=== PATIENT | male | born 1990 | race Caucasian/White ===

== ENCOUNTER 2025-01-10 12:36 | Observation (INO) ==
--- NOTE | 2025-01-10 13:25 | XRay Report ---
XR chest 1V not portable HISTORY: 34 years-old Male Chest pain, nonspecific COMPARISON: None TECHNIQUE: PA view of the chest FINDINGS: Cardiomediastinal and hilar silhouettes are within normal limits. No pneumothorax, pleural effusion o r airspace consolidation. The bones appear grossly intact. IMPRESSION: No acute process. ACT 112: Negative or not required by law. The above report was generated using voice recognition software. It may contain grammatical, syntax o r spelling errors. Electronically signed by: Vito Mott M.D. 01/10/2025 1:23 PM
[2025-01-10 13:28] LABS: Hematocrit (blood only) 49.1 % (42.0-52.0); Hemoglobin 17.2 g/dl (14.0-18.0); Mean Corpuscular Hemoglobin 31.1 pg (25.0-34.0); Mean Corpuscular Volume 88.8 fL (80.0-100.0); Mean Platelet Volume 10.3 fL (9.4-12.4); Platelet Count 291 K/uL (130-400); RDW Coefficient of Variation 11.9 % (11.5-14.5); RDW Standard Deviation 38.8 fL (36.4-46.3); Red Blood Count 5.53 M/uL (4.70-6.10); White Blood Count 24.17 K/ul (4.8-10.8)
[2025-01-10 13:44] LABS: Albumin Globulin Ratio 1.8 (0.9-2); Albumin Level 5.5 gm/dl (3.4-5.0); BUN Creatinine Ratio 14.8 (10-20); Basophils # (auto) 0.04 K/uL (0.00-0.20); Basophils % (auto) 0.2 %; Bilirubin,Total 0.9 mg/dl (0.2-1.0); Calcium 9.9 mg/dl (8.6-10.3); Creatinine Clr Calc Pharmacy 136.2 ml/min; Globulin 3.1 gm/dl (2.5-4.0); Immature Granulocytes # (auto) 0.21 K/uL (0.01-0.20); Immature Granulocytes % (auto) 0.9 %; Monocytes # (auto) 0.82 K/uL (0.11-0.59); Monocytes % (auto) 3.4 %; Neutrophils % (auto) 90.5 %; Potassium 4.2 mmol/L (3.5-5.1); RBC Morphology Unremarkable; Total Protein 8.6 gm/dl (6.0-8.3)
[2025-01-10 13:51] LABS: Troponin I High Sensitivity 3.3 pg/ml (0-20)
[2025-01-10 14:07] LABS: Partial Thromboplastin Ratio 0.9; Partial Thromboplastin Time 25 Seconds (21-31); Prothrombin Time 10.9 Seconds (9.0-12.0)
[2025-01-10] MEDS: OPTIRAY 320 125ml IV ONE (15:48)
[2025-01-10] MEDS: ACETAMINOPHEN 1,000 MG/100 ML VIAL IV STA (16:12)
[2025-01-10] MEDS: KETOROLAC TROMETHAMINE 15 MG/ML VIAL IV STA (16:12)
[2025-01-10] MEDS: SODIUM CHLORIDE 0.9% 1,000 ML IV ONE (16:17)
--- NOTE | 2025-01-10 16:20 | CT Scan Report ---
EXAM: CT Angiography Chest With Intravenous Contrast INDICATION: Chest pain and shortness of breath. TECHNIQUE: Axial computed tomographic angiography images of the chest with intravenous contrast. Sagittal and coronal reformatted images were created and reviewed. This CT exam was performed using one or more of the following dose reduction techniques: automated exposure control, adjustment of the mA and/or kV according to patient size, and/or use of iterative reconstruction technique. MIP reconstructed images were created and reviewed. CONTRAST: 115ml of Optiray 320 was administered intravenously. COMPARISON: No relevant prior studies available. FINDINGS: Pulmonary arteries: No abnormality noted. No pulmonary embolism. Aorta: No acute change noted. No thoracic aortic aneurysm or dissection. Lungs and pleural spaces: There is a trace left medial and basilar pneumothorax. No mass. No significant effusion. Heart: No abnormality noted. No cardiomegaly. No significant pericardial effusion. No evidence of RV dysfunction. Mediastinum: There is mild pneumomediastinum. Bones/joints: No acute or atypical chronic changes. Soft tissues: No abnormality noted. Lymph nodes: No abnormality noted. No enlarged lymph nodes. IMPRESSION: 1. Mild pneumomediastinum and trace medial and basilar left pneumothorax. 2. No pulmonary embolus or aortic abnormality. ACT 112: Negative or not required by law. Electronically signed by Brook Gutierrez 01-10-2025 4:19 PM
--- NOTE | 2025-01-10 16:23 | Emergency Department Note ---
Impression & Plan Right-sided chest pain, Pneumomediastinum, Pleuritic chest pain, Vomiting, Leukocytosis ED Provider Note NAME: SRAVAN BROWN AGE: 34 SEX: M : 1990 ARRIVES VIA: Walk-In INFORMANT: [Patient] ED PROVIDER(S): [Artem Mueller MD] CHIEF COMPLAINT: Chest pain, short of breath HISTORY OF PRESENT ILLNESS: The patient is a 34-year-old male who states that he had way too much alcohol to drink last night and this morning, began vomiting. He states he began having pain in the area of the right upper quadrant and right lower ribs. The pain is worse to move certain ways and to take a deep breath. He feels short of breath. The patient states that his nausea has passed, he just feels weak and dehydrated. The patient has no history of heart or lung disease. He has never had any abdominal surgeries. He is somewhat concerned about his gallbladder as he states there is a family history of gallbladder issues. PMHx/PSHx/Social Hx: See Below PHYSICAL EXAM: GENERAL: Patient is in no acute distress. HEENT: No acute trauma, normocephalic atraumatic, mucous membranes moist, no nasal congestion. NECK: No stridor, no adenopathy, no meningismus, trachea is midline. LUNGS: Clear to auscultation bilaterally, no wheeze, no rhonchi, breath sounds equal. HEART: Mildly tachycardic with a subtle systolic murmur, regular rhythm. Chest: Nontender chest wall. ABDOMEN: Soft, there does seem to be some discomfort in the right upper quadrant with very deep palpation. EXTREMITIES: No cyanosis, full range of motion of all the joints without pain or difficulty. NEUROLOGIC: Oriented x 3, no acute motor or sensory deficits, no focal weakness. SKIN: No jaundice, no diaphoresis. DIFFERENTIAL DIAGNOSIS: Musculoskeletal pain, biliary colic, rib fracture, PE, pneumothorax, among others. EMERGENCY DEPARTMENT PROCEDURES: MEDICAL DECISION MAKING: There is a significant leukocytosis of 24,000, this could be consistent with infection or possibly, the stress of his vomiting. There was a normal hemoglobin and platelet count. No coagulopathy. No renal failure or significant electrolyte abnormality. No concerning liver enzyme elevation. No evidence for pancreatitis. ECG showed a normal sinus rhythm with some nonspecific change, no acute ischemia. Cardiac enzyme testing x 1 was not consistent with acute cardiac injury. Chest x-ray did not show free air, mediastinal widening or pneumothorax. Gallbladder ultrasound did not show any gallstones. Chest CT did not show PE. There was some pneumomediastinum and a very small basilar pneumothorax. I did speak with on-call GI. They recommended proton pump inhibitors, n.p.o. status, hydration and antibiotics. The patient will be seen by them in the morning. For now, rest and time was suggested. The patient potentially ruptured his esophagus, he potentially ruptured a lung bleb. Either of these 2 could have led to his findings on CT imaging. For now, patient will be observed, he will be reassessed in the morning and at that point, potentially undergo further workup/testing. I spoke with the patient and case management, the on-call hospitalist was consulted. The findings on CT imaging explain his discomfort. Of note, while in the ED, the patient was given 1 l of IV saline for hydration. He was given IV Protonix, IV Zofran, IV Toradol, IV ceftriaxone and IV Tylenol. He received IV Pepcid. Prior/Outside records/notes reviewed: None ECG per my interpretation: Indication was chest pain. The ECG shows a normal sinus rhythm with a rate of 98. There is some diffuse nonspecific ST change. No ST elevation, no PVCs. The QTc is 426. Continuous Cardiac Monitoring per my interpretation: An order was placed for continuous cardiac monitoring. The monitor shows a rate of 97 with normal sinus rhythm. Imaging/x-ray results per my interpretation: Chest x-ray does not show pneumonia, mediastinal widening or free air. Chronic Medical/Social conditions affecting care: None Care/Management discussed with: On-call GI-Dr. Guo. Case management and the on-call hospitalist. Level of care consideration(s): After review of the information above and other included data: --I believe the patient requires escalation of care to admission DISPOSITION: Admission Past Med/Surg History Problem List (Updated 01/10/25 @ 18:29 by Artem Mueller MD) Leukocytosis (Acute) Vomiting (Acute) Pleuritic chest pain (Acute) Pneumomediastinum (Acute) Right-sided chest pain (Acute) Pneumothorax Pneumomediastinum Medical History No significant medical problems Social History Smoking Status: Never smoker Preferred Language: Indonesian Feels Safe at Home: Yes Allergies Allergies Allergy/AdvReac Type Severity Reaction Status Date / Time No Known Allergies Allergy Unverified 01/10/25 17:40 Home Meds Home Medications Medication Instructions Recorded Confirmed No Known Home Medications 01/10/25 01/10/25 Results & Data (ED) Vital Signs Vital Signs - 24 hr 01/10/25 12:47 01/10/25 15:47 01/10/25 16:00 Temperature 37 C Temperature Source Temporal Artery Scan Pulse Rate 124 H Pulse Rate [Left Apical] 91 H Respiratory Rate 18 22 Respiratory Effort / Characteristics Non-Labored Non-Labored Spontaneous Respiratory Depth Normal Normal Respiratory Pattern Regular Regular Blood Pressure 141/99 H Blood Pressure [Left Arm] 167/90 H Blood Pressure Mean 113 Blood Pressure Mean [Left Arm] 115 Pulse Oximetry 98 98 Oxygen Delivery Method Room Air Room Air Room Air Sepsis Recent Fever Within 48 Hours No Sepsis New/Unexplained Change in Mental Status No Sepsis Action Taken by Nursing No Action Required 01/10/25 16:05 01/10/25 17:31 01/10/25 17:42 Temperature Temperature Source Pulse Rate 97 H 91 H Pulse Rate [Left Apical] 96 H Respiratory Rate 18 20 Respiratory Effort / Characteristics Non-Labored Spontaneous Respiratory Depth Normal Respiratory Pattern Regular Blood Pressure Blood Pressure [Left Arm] 134/85 Blood Pressure Mean Blood Pressure Mean [Left Arm] 101 Pulse Oximetry 99 98 Oxygen Delivery Method Room Air Room Air Sepsis Recent Fever Within 48 Hours Sepsis New/Unexplained Change in Mental Status Sepsis Action Taken by Nursing 01/10/25 17:51 Temperature Temperature Source Pulse Rate 96 H Pulse Rate [Left Apical] Respiratory Rate 20 Respiratory Effort / Characteristics Respiratory Depth Respiratory Pattern Blood Pressure Blood Pressure [Left Arm] Blood Pressure Mean Blood Pressure Mean [Left Arm] Pulse Oximetry 99 Oxygen Delivery Method Room Air Sepsis Recent Fever Within 48 Hours Sepsis New/Unexplained Change in Mental Status Sepsis Action Taken by [facility] Medications Current Medication List: was personally reviewed by me Laboratory Data Attestation: I reviewed the patient's lab results. 01/10/25 13:07 01/10/25 13:07 Lab Results 01/10/25 Range/Units 13:07 WBC 24.17 H (4.8-10.8) K/ul RBC 5.53 (4.70-6.10) M/uL Hgb 17.2 (14.0-18.0) g/dl Hct 49.1 (42.0-52.0) % MCV 88.8 (80.0-100.0) fL MCH 31.1 (25.0-34.0) pg MCHC 35.0 (32.0-36.0) g/dL RDW Std Deviation 38.8 (36.4-46.3) fL RDW Coeff of Shaila 11.9 (11.5-14.5) % Plt Count 291 (130-400) K/uL MPV 10.3 (9.4-12.4) fL Immature Gran % (Auto) 0.9 % Neut % (Auto) 90.5 % Lymph % (Auto) 5.0 % Boone % (Auto) 3.4 % Eos % (Auto) 0.0 % Baso % (Auto) 0.2 % Neut # (Auto) 21.90 H (1.40-6.50) K/uL Lymph # (Auto) 1.20 (1.20-3.40) K/uL Boone # (Auto) 0.82 H (0.11-0.59) K/uL Eos # (Auto) 0.00 (0.00-0.50) K/uL Baso # (Auto) 0.04 (0.00-0.20) K/uL Immature Gran # (Auto) 0.21 H (0.01-0.20) K/uL RBC Morphology Unremarkable PT 10.9 (9.0-12.0) Seconds INR 1.0 (0.9-1.1) APTT 25 (21-31) Seconds PTT Ratio 0.9 Sodium 140 (136-145) mmol/L Potassium 4.2 (3.5-5.1) mmol/L Chloride 101 (98-107) mmol/L Carbon Dioxide 25 (21-32) mmol/L Anion Gap 14 H (3-11) BUN 13 (6-23) mg/dl Creatinine 0.88 (0.6-1.4) mg/dl Est Cr Clr Drug Dosing 136.2 ml/min eGFR 117.17 BUN/Creatinine Ratio 14.8 (10-20) Glucose 135 H (70-99(Fasting)) mg/dl Calcium 9.9 (8.6-10.3) mg/dl Total Bilirubin 0.9 (0.2-1.0) mg/dl AST 21 (13-39) U/L ALT 40 (7-52) U/L Alkaline Phosphatase 64 (34-104) U/L Troponin I High Sens 3.3 (0-20) pg/ml Total Protein 8.6 H (6.0-8.3) gm/dl Albumin 5.5 H (3.4-5.0) gm/dl Globulin 3.1 (2.5-4.0) gm/dl Albumin/Globulin Ratio 1.8 (0.9-2) Lipase 9 L (11-82) U/L Administered Medications Discontinued Medications Acetaminophen (Ofirmev) 1,000 mg in 100 mls @ 400 mls/hr IV NOW STA Stop: 01/10/25 16:13 Last Infusion: 01/10/25 16:55 Dose: Infused Documented By: Admin: 01/10/25 16:12 Dose: 400 mls/hr Documented By: ARABELLA Sodium Chloride (Nss) 1,000 mls @ 999 mls/hr IV .Q1H1M ONE Stop: 01/10/25 17:16 Last Infusion: 01/10/25 17:28 Dose: Infused Documented By: Admin: 01/10/25 16:17 Dose: 999 mls/hr Documented By: ARABELLA Ceftriaxone Sodium (Rocephin) 2,000 mg in 50 mls @ 100 mls/hr IV NOW STA Stop: 01/10/25 17:14 Last Infusion: 01/10/25 17:28 Dose: Infused Documented By: Admin: 01/10/25 16:56 Dose: 100 mls/hr Documented By: PRECIOUS Pantoprazole Sodium 80 mg/ (Dextrose) 120 mls @ 400 mls/hr IV NOW ONE Stop: 01/10/25 17:02 Last Admin: 01/10/25 17:49 Dose: 400 mls/hr Documented By: PRECIOUS Famotidine (Pepcid 20mg Iv Push) 20 mg in 5 mls @ 2.5 mls/min IV NOW STA Stop: 01/10/25 16:46 Last Admin: 01/10/25 16:56 Dose: 2.5 mls/min Documented By: ARABELLA Ioversol (Optiray 320 125ml) 115 ml IV ONCE ONE Stop: 01/10/25 15:48 Last Admin: 01/10/25 15:48 Dose: 115 ml Documented By: SYDNEY Ketorolac Tromethamine (Ketorolac Tromethamine 15 Mg/Ml Vial) 15 mg IV NOW STA Stop: 01/10/25 16:00 Last Admin: 01/10/25 16:12 Dose: 15 mg Documented By: ARABELLA Ondansetron HCl (Ondansetron Inj 2 Mg/Ml 2 Ml Vial) 4 mg IV NOW STA Stop: 01/10/25 16:46 Last Admin: 01/10/25 16:56 Dose: 4 mg Documented By: ARABELLA Imaging Data Radiologist's Impression: Chest X-Ray 01/10/25 12:50 XR chest 1V not portable HISTORY: 34 years-old Male Chest pain, nonspecific COMPARISON: None TECHNIQUE: PA view of the chest FINDINGS: Cardiomediastinal and hilar silhouettes are within normal limits. No pneumothorax, pleural effusion or airspace consolidation. The bones appear grossly intact. IMPRESSION: No acute process. ACT 112: Negative or not required by law. The above report was generated using voice recognition software. It may contain grammatical, syntax or spelling errors. Electronically signed by: Vito Mott M.D. 01/10/2025 1:23 PM Chest CTA 01/10/25 15:35 EXAM: CT Angiography Chest With Intravenous Contrast INDICATION: Chest pain and shortness of breath. TECHNIQUE: Axial computed tomographic angiography images of the chest with intravenous contrast. Sagittal and coronal reformatted images were created and reviewed. This CT exam was performed using one or more of the following dose reduction techniques: automated exposure control, adjustment of the mA and/or kV according to patient size, and/or use of iterative reconstruction technique. MIP reconstructed images were created and reviewed. CONTRAST: 115ml of Optiray 320 was administered intravenously. COMPARISON: No relevant prior studies available. FINDINGS: Pulmonary arteries: No abnormality noted. No pulmonary embolism. Aorta: No acute change noted. No thoracic aortic aneurysm or dissection. Lungs and pleural spaces: There is a trace left medial and basilar pneumothorax. No mass. No significant effusion. Heart: No abnormality noted. No cardiomegaly. No significant pericardial effusion. No evidence of RV dysfunction. Mediastinum: There is mild pneumomediastinum. Bones/joints: No acute or atypical chronic changes. Soft tissues: No abnormality noted. Lymph nodes: No abnormality noted. No enlarged lymph nodes. IMPRESSION: 1. Mild pneumomediastinum and trace medial and basilar left pneumothorax. 2. No pulmonary embolus or aortic abnormality. ACT 112: Negative or not required by law. Electronically signed by Brook Gutierrez 01-10-2025 4:19 PM Gallbladder Ultrasound 01/10/25 16:16 INDICATION: Right upper quadrant pain. COMPARISON: None TECHNIQUE: Transverse and longitudinal lawton scale and color Doppler images of the right upper quadrant were obtained. FINDINGS: Liver: Measures up to 14.7 cm in length. No focal hepatic mass or intrahepatic biliary ductal dilatation. Hepatopedal flow in the portal vein. Gallbladder: No gallbladder wall thickening, pericholecystic fluid or shadowing gallstones. The common bile duct is not dilated. Pancreas: Free of focal mass, as visualized. Right kidney: Measures up to 9.9 cm. Negative for solid renal mass, hydronephrosis, cyst or shadowing calculus. IMPRESSION: No acute process in the right upper quadrant of the abdomen. Electronically signed by Himanshu Ford 01-10-2025 5:50 PM Discharge Plan Visit Data Chief Complaint: Shortness of Breath/Dyspnea Stated Complaint: SOB, CHEST PAIN ED Provider: Artem Mueller Discharge Problem: Right-sided chest pain, Pneumomediastinum, Pleuritic chest pain, Vomiting, Leukocytosis Patient Disposition: Admitted As Inpatient Condition: Fair Forms Stand Alone Forms: [employer] Prescriptions Prescriptions: No Action No Known Home Medications Referrals Referrals: PCP,NO [Primary Care Provider] - Discharge Problem: Vomiting Qualifiers: Vomiting type: unspecified Nausea presence: with nausea Qualified Code(s): R 11.2 - Nausea with vomiting, unspecified Leukocytosis Qualifiers: Leukocytosis type: unspecified Qualified Code(s): D72.829 - Elevated white blood cell count, unspecified
[2025-01-10] MEDS: FAMOTIDINE 20MG IV PUSH 20 MG/5 ML SYR IV STA (16:56)
[2025-01-10] MEDS: ONDANSETRON INJ 2 MG/ML 2 ML VIAL IV STA (16:56)
[2025-01-10] MEDS: cefTRIAXone SODIUM 2,000 MG/50 ML BAG IV STA (16:56)
[2025-01-10] MEDS: PANTOprazole 80 MG in DEXTROSE 5% 100 ML IV ONE (17:49)
--- NOTE | 2025-01-10 17:50 | Ultrasound Report ---
INDICATION: Right upper quadrant pain. COMPARISON: None TECHNIQUE: Transverse and longitudinal lawton scale and color Doppler images of the right upper quadrant were obtained. FINDINGS: Liver: Measures up to 14.7 cm in length. No focal hepatic mass or intrahepatic biliary ductal dilatation. Hepatopedal flow in the portal vein. Gallbladder: No gallbladder wall thickening, pericholecystic fluid or shadowing gallstones. The common bile duct is not dilated. Pancreas: Free of focal mass, as visualized. Right kidney: Measures up to 9.9 cm. Negative for solid renal mass, hydronephrosis, cyst or shadowing calculus. IMPRESSION: No acute process in the right upper quadrant of the abdomen. Electronically signed by Himanshu Ford 01-10-2025 5:50 PM
[2025-01-10] MEDS ORDERED: ONDANSETRON INJ 2 MG/ML 2 ML VIAL IV PRN (17:52)
--- NOTE | 2025-01-10 18:07 | History & Physical Report ---
Date of Service January 10, 2025 Assessment & Plan (1) Pneumomediastinum: (2) Pneumothorax: Plan This is a 34 year old gentleman with no significant past medical history who presented to the ED on 01/10 for shortness of breath and vomiting. #pneumomediastinum CXR negative CTA w/ mild pneumomediastinum and left pneumothorax RUQ US negative CBC w/ leukocytosis of 24.17, likely secondary to vomiting. Maintain NPO status overnight IV PPI BID Zofran prn N/V GI consulted, appreciate recommendations #pneumothorax Start high flow oxygen pulmonology consulted, appreciate recommendations AM CBC, BMP DVT prophylaxis: encourage ambulation Code: full Case discussed w/ Dr. Mackenzie at time of admission. History of Present Illness Primary Care Provider: NO PCP This is a 34 year old gentleman with no significant past medical history who presented to the ED on 01/10 for shortness of breath and vomiting. Patient reports he binge drank alcohol last night and had started to vomit several times due to that. Around 7 am this morning he started to experience pain in his right upper quadrant region/rib region. He continued to vomit several times after that as well. He denies any hematemesis. Denies any shortness of breath but states that he cannot take deep breaths because it will cause him too much pain. He does report his symptoms have improved since earlier today. He also reports abnormal bowel habits recently. States he had this awhile ago but worked on his diet and it resolved. He states his stools are oily and yellow in color recently. In the ED he underwent a chest CTA that revealed a mild pneumomediastinum and trace medial/basilar left pnuemothorax. Negative for PE. His CXR was negative. His RUQ US was negative. CBC w/ leukocytosis of 24.17. BMP with stable renal function and electrolytes. GI was contacted by ED physician who recommended patient be admitted to hospital for overnight monitoring and that they will see the patient in the morning to aide in determining next steps. Allergies Allergy/AdvReac Type Severity Reaction Status Date / Time No Known Allergies Allergy Unverified 01/10/25 17:40 Home Medications Medication Instructions Recorded Confirmed Type No Known Home Medications 01/10/25 01/10/25 History Past Med/Surg History Problem List (Updated 01/10/25 @ 18:29 by Artem Mueller MD) Leukocytosis (Acute) Vomiting (Acute) Pleuritic chest pain (Acute) Pneumomediastinum (Acute) Right-sided chest pain (Acute) Pneumothorax Pneumomediastinum Medical History No significant medical problems Social History Smoking Status: Never smoker Preferred Language: Hungarian Feels Safe at Home: Yes Physical Exam Constitutional: WD/WN, vitals as above Eyes: PERRL, conjunctivae normal, anicteric sclerae Respiratory: normal respiratory effort, lungs clear to auscultation Cardiovascular: RRR, no murmur, no edema Gastrointestinal (Abdomen): +RUQ tenderness. +BS Musculoskeletal: moves all extremities Psychiatric: A+Ox3, euthymic affect Results & Data Results & Data Vital Signs (Past 12 Hours) Vital Signs Temp Pulse Pulse Resp BP BP Pulse Ox 01/10/25 17:51 96 H 20 99 01/10/25 17:42 91 H 20 98 01/10/25 17:31 96 H 18 134/85 99 01/10/25 16:05 97 H 01/10/25 16:00 91 H 22 167/90 H 98 01/10/25 15:47 01/10/25 12:47 37 C 124 H 18 141/99 H 98 O2 Del Method 01/10/25 17:51 Room Air 01/10/25 17:42 Room Air 01/10/25 17:31 Room Air 01/10/25 16:05 01/10/25 16:00 Room Air 01/10/25 15:47 Room Air 01/10/25 12:47 Room Air Supervising Physician Co-Signing Physician Notes I personally saw and examined the patient. I independently reviewed the labs, EKG, imaging, problem list, medication list, past medical history and family history. I verified all santa points and agree with Sallie Wright PA-C with the following exceptions and/or additions: 34-year-old male presents to the ER with shortness of breath and right-sided pleuritic chest pain following vomiting from alcohol use. O/E HS RRR, no murmurs, Chest CTAB, Abdo SNT A/P Pneumomediastinum - with heavy vomiting concern for esophageal injury. Pantoprazole 40 mg IV BID, ceftriaxone for antibiotic prophylaxis. Consult gastroenterology. NPO IV fluids. Pneumothorax - 10 L/min nonrebreather, consult pulmonology PG Care Time/CCT Total # of Minutes Spent Total Time Spent with Patient: Total time spent is greater than 50% in coordination of care (as documented) at patient's floor/unit and/or counseling patient: Coding Level of Care Code 05250 INT INP/OBS CARE 2/55MIN Diagnoses Pneumomediastinum J98.2 Pneumothorax J93.9
[2025-01-10] MEDS: PANTOprazole 40 MG/10 ML SYR IV SCH (20:51)
[2025-01-10] MEDS: LACTATED RINGER'S 1,000 ML IV SCH (20:52)
--- NOTE | 2025-01-10 21:46 | Electrocardiogram Report ---
Test Reason : Blood Pressure : */* mmHG Vent. Rate : 98 BPM Atrial Rate : 98 BPM P-R Int : 132 ms QRS Dur : 80 ms QT Int : 334 ms P-R-T Axes : 60 28 -1 degrees QTcB Int : 426 ms Normal sinus rhythm Possible Left atrial enlargement Nonspecific T wave abnormality Abnormal ECG No previous ECGs available Confirmed by Tino Pena ([id number]) on 01/10/2025 9:45:57 PM Referred By: Confirmed By: Tino Pena
[2025-01-11 03:46] VITALS: TEMP 98.2
[2025-01-11 04:04] LABS: Hematocrit (blood only) 38.4 % (42.0-52.0); Hemoglobin 13.3 g/dl (14.0-18.0); Mean Corpuscular Hgb Conc 34.6 g/dL (32.0-36.0); Mean Corpuscular Volume 89.5 fL (80.0-100.0); Mean Platelet Volume 10.2 fL (9.4-12.4); Platelet Count 232 K/uL (130-400); RDW Standard Deviation 39.2 fL (36.4-46.3); Red Blood Count 4.29 M/uL (4.70-6.10); White Blood Count 14.58 K/ul (4.8-10.8)
[2025-01-11 04:10] LABS: BUN Creatinine Ratio 18.9 (10-20); Calcium 8.9 mg/dl (8.6-10.3); Creatinine Clr Calc Pharmacy 126.2 ml/min; Potassium 3.8 mmol/L (3.5-5.1)
--- NOTE | 2025-01-11 08:49 | Pulmonary Consultation ---
Date of Consultation January 11, 2025 Assessment & Plan (1) Pneumothorax: Plan Impression: 34-year-old male with episode of vomiting and retching with small degree of pneumomediastinum and a trivial pneumothorax. He is asymptomatic. Recommendations: 1. Pneumothorax: Films were independently reviewed. This pneumothorax is trivial if its even there and I do not think additional evaluation or imaging studies are required. He does not require supplemental oxygen. He can be dism issed from the hospital from this standpoint. 2. Pneumomediastinum: Agree with evaluation of potential GI etiologies especially given his episodes of vomiting and retching. Pulmonary will sign off at this point in time. Feel free to contact us with questions or concerns History of Present Illness Attending Physician: Martin Calderon, DO History of Present Illness Asked by hospitalist to assist in evaluation management this patient with trivial pneumothorax and pneumomediastinum. History is obtained from discussion with the patient as well as review the electronic medical record. Patient is a 34-year-old male he is visiting from [place]. He was at a constitution party yesterday evening with extensive drinking. He went to bed and then had an episode of bilious vomiting during the night. This was followed by significant retching. He then developed some upper abdominal/lower chest discomfort which prompted evaluation in the emergency room. CT scan was performed which revealed some small degree of pneumomediastinum as well as a trivial basilar pneumothorax. The patient was placed on oxygen and pulmonary was consulted as well as GI. Patient feels better this morning. No history of asthma. He denies any coughing or wheezing during any of these episodes. No prior history of pneumothorax or structural lung disease. Allergies Allergy/AdvReac Type Severity Reaction Status Date / Time No Known Allergies Allergy Unverified 01/10/25 17:40 Home Medications Medication Instructions Recorded Confirmed Type No Known Home Medications 01/10/25 01/10/25 History Patient History Medical History No significant medical problems Social History Smoking Status: Never smoker Hx Alcohol Use: No Hx Substance Use: Yes Substance Use Type Other:: medical card Preferred Language: Yemeni Communication Ability: Effective Edi Manager Required: No Beliefs That Will Affect Care: None Current Living Situation: Family Feels Safe at Home: Yes Review of Systems Review of Systems: All systems reviewed & are unremarkable except as noted in Subjective Physical Exam Constitutional: WD/WN, vitals as above Neck: trachea midline, no thyromegaly Respiratory: normal respiratory effort, lungs clear to auscultation Cardiovascular: RRR, no murmur, no edema Gastrointestinal (Abdomen): normal bowel sounds, soft, nontender, no hepatosplenomegaly Musculoskeletal: Extremities: extremities normal to inspection Skin: no rashes, warm and dry Neurologic: Nonfocal exam Lymphatic: no cervical lymphadenopathy Results & Data Results & Data Vital Signs (Past 12 Hours) Vital Signs Temp Pulse Pulse Resp BP BP Pulse Ox 01/11/25 07:04 48 L 01/11/25 03:34 36.8 C 61 14 132/59 L 100 01/11/25 02:41 61 01/11/25 01:19 01/10/25 23:02 62 16 148/81 H 100 01/10/25 22:51 67 15 100 01/10/25 22:15 66 12 100 01/10/25 22:00 128/68 01/10/25 21:43 01/10/25 21:43 37.1 C 71 17 137/73 100 01/10/25 21:30 66 15 135/66 100 01/10/25 21:18 71 18 100 01/10/25 21:00 117/80 01/10/25 20:51 83 17 100 Pulse Ox O2 Del Method O2 Del Method O2 Flow Rate O2 Flow Rate 01/11/25 07:04 01/11/25 03:34 Non-rebreather 01/11/25 02:41 01/11/25 01:19 100 Non-rebreather 01/10/25 23:02 Non-rebreather 01/10/25 22:51 Non-rebreather 01/10/25 22:15 Non-rebreather 01/10/25 22:00 01/10/25 21:43 Non-rebreather 01/10/25 21:43 Non-rebreather 01/10/25 21:30 Non-rebreather 01/10/25 21:18 Non-rebreather 01/10/25 21:00 01/10/25 20:51 Non-rebreather 10 Critical Care Results & Data Vital Signs (Past 12 Hours) Vital Signs Temp Pulse Pulse Resp BP BP Pulse Ox 01/11/25 07:04 48 L 01/11/25 03:34 36.8 C 61 14 132/59 L 100 01/11/25 02:41 61 01/11/25 01:19 01/10/25 23:02 62 16 148/81 H 100 01/10/25 22:51 67 15 100 01/10/25 22:15 66 12 100 01/10/25 22:00 128/68 01/10/25 21:43 01/10/25 21:43 37.1 C 71 17 137/73 100 01/10/25 21:30 66 15 135/66 100 01/10/25 21:18 71 18 100 01/10/25 21:00 117/80 01/10/25 20:51 83 17 100 Pulse Ox O2 Del Method O2 Del Method O2 Flow Rate O2 Flow Rate 01/11/25 07:04 01/11/25 03:34 Non-rebreather 01/11/25 02:41 01/11/25 01:19 100 Non-rebreather 10 01/10/25 23:02 Non-rebreather 01/10/25 22:51 Non-rebreather 01/10/25 22:15 Non-rebreather 01/10/25 22:00 01/10/25 21:43 Non-rebreather 01/10/25 21:43 Non-rebreather 01/10/25 21:30 Non-rebreather 01/10/25 21:18 Non-rebreather 01/10/25 21:00 01/10/25 20:51 Non-rebreather 10 Lab & Micro Results (Past 24 Hours) RBC 4.29 M/uL (4.70-6.10) L 01/11/25 WBC 14.58 K/ul (4.8-10.8) H 01/11/25 Hgb 13.3 g/dl (14.0-18.0) L 01/11/25 Hct 38.4 % (42.0-52.0) L 01/11/25 MCV 89.5 fL (80.0-100.0) 01/11/25 MCH 31.0 pg (25.0-34.0) 01/11/25 MCHC 34.6 g/dL (32.0-36.0) 01/11/25 RDW Standard Deviation 39.2 fL (36.4-46.3) 01/11/25 RDW Coefficient of Variation 12.0 % (11.5-14.5) 01/11/25 Plt Count 232 K/uL (130-400) 01/11/25 MPV 10.2 fL (9.4-12.4) 01/11/25 Neutrophils (%) (Auto) 90.5 % 01/10/25 Lymphocytes (%) (Auto) 5.0 % 01/10/25 Monocytes # (Auto) 0.82 K/uL (0.11-0.59) H 01/10/25 Eosinophils # (Auto) 0.00 K/uL (0.00-0.50) 01/10/25 Immature Granulocyte % (Auto) 0.9 % 01/10/25 Neutrophils # (Auto) 21.90 K/uL (1.40-6.50) H 01/10/25 Lymphocytes # (Auto) 1.20 K/uL (1.20-3.40) 01/10/25 Monocytes # (Auto) 0.82 K/uL (0.11-0.59) H 01/10/25 Eosinophils # (Auto) 0.00 K/uL (0.00-0.50) 01/10/25 Basophils # (Auto) 0.04 K/uL (0.00-0.20) 01/10/25 Immature Granulocyte # (Auto) 0.21 K/uL (0.01-0.20) H 01/10 Red Blood Cell Morphology Unremarkable 01/10/25 Na 138 mmol/L (136-145) 01/11/25 K 3.8 mmol/L (3.5-5.1) 01/11/25 Cl 104 mmol/L (98-107) 01/11/25 CO2 30 mmol/L (21-32) 01/11/25 Anion Gap 4 (3-11) 01/11/25 BUN 18 mg/dl (6-23) 01/11/25 Creatinine 0.95 mg/dl (0.6-1.4) 01/11/25 BUN/Creatinine Ratio 18.9 (10-20) 01/11/25 Glu 100 mg/dl (70-99(Fasting)) H 01/11/25 Ca 8.9 mg/dl (8.6-10.3) 01/11/25 Total Bilirubin 0.9 mg/dl (0.2-1.0) 01/10/25 AST 21 U/L (13-39) 01/10/25 ALT 40 U/L (7-52) 01/10/25 Alkaline Phosphatase 64 U/L (34-104) 01/10/25 TP 8.6 gm/dl (6.0-8.3) H 01/10/25 Albumin 5.5 gm/dl (3.4-5.0) H 01/10/25 Globulin 3.1 gm/dl (2.5-4.0) 01/10/25 Albumin/Globulin Ratio 1.8 (0.9-2) 01/10/25 Calcium Level 8.9 mg/dl (8.6-10.3) 01/11/25 03:36 Prothromb Time International Ratio 1.0 (0.9-1.1) 01/10/25 13:0 7 Diagnostic Findings (Past 24 Hours) Chest X-Ray 01/10/25 12:50 XR chest 1V not portable HISTORY: 34 years-old Male Chest pain, nonspecific COMPARISON: None TECHNIQUE: PA view of the chest FINDINGS: Cardiomediastinal and hilar silhouettes are within normal limits. No pneumothorax, pleural effusion or airspace consolidation. The bones appear grossly intact. IMPRESSION: No acute process. ACT 112: Negative or not required by law. The above report was generated using voice recognition software. It may contain grammatical, syntax or spelling errors. Electronically signed by: Vito Mott M.D. 01/10/2025 1:23 PM Chest CTA 01/10/25 15:35 EXAM: CT Angiography Chest With Intravenous Contrast INDICATION: Chest pain and shortness of breath. TECHNIQUE: Axial computed tomographic angiography images of the chest with intravenous contrast. Sagittal and coronal reformatted images were created and reviewed. This CT exam was performed using one or more of the following dose reduction techniques: automated exposure control, adjustment of the mA and/or kV according to patient size, and/or use of iterative reconstruction technique. MIP reconstructed images were created and reviewed. CONTRAST: 115ml of Optiray 320 was administered intravenously. COMPARISON: No relevant prior studies available. FINDINGS: Pulmonary arteries: No abnormality noted. No pulmonary embolism. Aorta: No acute change noted. No thoracic aortic aneurysm or dissection. Lungs and pleural spaces: There is a trace left medial and basilar pneumothorax. No mass. No significant effusion. Heart: No abnormality noted. No cardiomegaly. No significant pericardial effusion. No evidence of RV dysfunction. Mediastinum: There is mild pneumomediastinum. Bones/joints: No acute or atypical chronic changes. Soft tissues: No abnormality noted. Lymph nodes: No abnormality noted. No enlarged lymph nodes. IMPRESSION: 1. Mild pneumomediastinum and trace medial and basilar left pneumothorax. 2. No pulmonary embolus or aortic abnormality. ACT 112: Negative or not required by law. Electronically signed by Brook Gutierrez 01-10-2025 4:19 PM Gallbladder Ultrasound 01/10/25 16:16 INDICATION: Right upper quadrant pain. COMPARISON: None TECHNIQUE: Transverse and longitudinal lawton scale and color Doppler images of the right upper quadrant were obtained. FINDINGS: Liver: Measures up to 14.7 cm in length. No focal hepatic mass or intrahepatic biliary ductal dilatation. Hepatopedal flow in the portal vein. Gallbladder: No gallbladder wall thickening, pericholecystic fluid or shadowing gallstones. The common bile duct is not dilated. Pancreas: Free of focal mass, as visualized. Right kidney: Measures up to 9.9 cm. Negative for solid renal mass, hydronephrosis, cyst or shadowing calculus. IMPRESSION: No acute process in the right upper quadrant of the abdomen. Electronically signed by Himanshu Ford 01-10-2025 5:50 PM I & O Totals 24 Hours 01/10/25 01/11/25 01/12/25 06:59 06:59 06:59 Intake Total 1270 / 1270 894.667 / 894.667 Balance 1270 / 1270 894.667 / 894.667 Cumulative 01/10/25 12:36 thru 01/11/25 08:03 Intake Total 2164.667 Balance 2164.667 RT Ventilator Mngmt (Last Documented) Ventilator Ordered Settings Respiratory Rate 14 01/11/25 03:34 Ventilator - PT Measurements Respiratory Rate 14 PG Care Time/CCT Total # of Minutes Spent Total Time Spent with Patient: Total time spent is greater than 50% in coordination of care (as documented) at patient's floor/unit and/or counseling patient: Coding Level of Care Code 07813 IN/OBS CONSULT LVL 3,45M Diagnoses Pneumothorax J93.9
--- NOTE | 2025-01-11 10:33 | Fluoroscopy Report ---
FL barium swallow w/o air CLINICAL HISTORY: 34 years-old Male with suspect Boorhaves,gastrograffin oralcontrast only. TECHNIQUE: 150 mL of Optiray 320 was administered to the patient under fluoroscopic examination. Mul tiple images were obtained and submitted for review. FLUOROSCOPY TIME: 18 seconds FLUOROSCOPY IMAGES: 7 Ka,r: 4.18 mGy Comparison: CTA chest 01/10/2025 Findings: During deglutition, contrast material flowed freely through the cervical esophagus. No filling defec t or mucosal abnormality is identified. No abnormal stricturing or mass effect is seen. The mid to distal esophagus is well coated and distended. No abnormal stricturing or mucosal abnormality is rocael ntified. No significant reflux or hiatal hernia was demonstrated during the exam. The GE junction i s normal in appearance. Impression: Unremarkable esophagram. ACT 112: Negative or not required by law. The above report was generated using voice recognition software. It may contain grammatical, syntax o r spelling errors. Electronically signed by: Vito Mott M.D. 01/11/2025 10:32 AM
--- NOTE | 2025-01-11 11:01 | Hospitalist Progress Note ---
Date of Service January 11, 2025 Assessment & Plan Plan (1) Pneumomediastinum: (2) Pneumothorax: Plan This is a 34 year old gentleman with no significant past medical history who presented to the ED on 01/10 for shortness of breath and vomiting. 1) pneumomediastinum CXR negative CTA w/ mild pneumomediastinum and left pneumothorax RUQ US negative CBC w/ leukocytosis of 24.17, likely secondary to vomiting. Maintain NPO status overnight IV PPI BID Zofran prn N/V GI consulted, appreciate recommendations 2) pneumothorax Start high flow oxygen pulmonology consulted, appreciate recommendations AM CBC, BMP DVT prophylaxis: encourage ambulation Code: full Admission and Anticipated Discharge Date Admission Date: January 10, 2025 Subjective Results & Data Results & Data Vital Signs (Past 12 Hours) Vital Signs Temp Pulse Pulse Resp BP Pulse Ox Pulse Ox 01/11/25 07:04 48 L 01/11/25 03:34 36.8 C 61 14 132/59 L 100 01/11/25 02:41 61 01/11/25 01:19 100 01/10/25 23:02 62 16 148/81 H 100 O2 Del Method O2 Del Method O2 Flow Rate O2 Flow Rate 01/11/25 07:04 01/11/25 03:34 Non-rebreather 10 01/11/25 02:41 01/11/25 01:19 Non-rebreather 10 01/10/25 23:02 Non-rebreather 10
[2025-01-11] MEDS: OPTIRAY 320 100ml IV ONE (11:54)
--- NOTE | 2025-01-11 12:10 | Gastrointestinal Consultation ---
Date of Consultation January 11, 2025 Assessment & Plan (1) Pneumomediastinum: Patient is clinically improving. Currently on IV antibiotics and would po antibiotics for 5 days. We obtained a repeat CT scan today with oral contrast and reviewed this with radiology. This did not indicate any esophageal abnormalities. No ongoing n/v and no pain with swallowing. Likely related to barotrauma/alveolar injury. We discussed GI warning signs of odynophagia, dysphagia, chest pain. We discussed a soft diet. Would advise checking with pulmonology when patient would be cleared to fly back to [place]. Supervising Physician Co-Signing Physician Notes Patient seen in the ICU. We did go the radiology and reviewed the numerous image studies. There does not appear to be any esophageal wall thickening. There is no fluid in the mediastinum. There is no evidence of extravasation on Gastrografin or barium. Radiologist notes that this may be barotrauma rather than esophageal perforation. Patient is having no pain with swallowing. I think at this point be reasonable to discharge. Patient should return if there is painful swallowing fevers chills worsening chest pain. Recommend he stick to a soft diet avoiding meat for the next 3 to 5 days. With his mediastinum and pneumo it be important to review with pulmonary when he is able to fly as he is planning on returning to [place] in the next 2 to 3 days. Patient should return if there is the above-noted symptoms. I think it be reasonable to treat him with amoxicillin 500 3 times daily 4 times daily for the next 5 days. History of Present Illness Reason for Consultation: Pneumomediastinum Attending Physician: Martin Calderon DO History of Present Illness Patient is a 34 yo male without medical history who presented to the ED on 01/10/25 due to shortness of breath and vomiting. [place] He notes he was consuming copious amounts of alcohol and started to vomit several times forcefully. He notes that shortly after he began experiencing pain in the RUQ area. He continued to vomit. He denies any GI bleeding. He notes he was initially unable to take a deep breath. In the ED he had a CTA that revealed mild pneumomediastinum and trace medial/basilar left pneumothorax. Imaging was negative for a PE. His CXR was unremarkable and a RUQ US was unremarkable as well. His initial WBC count was 24,170, but has now decreased to 14,580. He has had a barium swallow study that was unremarkable for evidence of an esophageal rupture at present. He notes he feels significantly better at this time and offers no physical complaints at the time of my visit. Allergies Allergy/AdvReac Type Severity Reaction Status Date / Time No Known Allergies Allergy Unverified 01/10/25 17:40 Home Medications Medication Instructions Recorded Confirmed Type No Known Home Medications 01/10/25 01/10/25 History Patient History Medical History No significant medical problems Social History Smoking Status: Never smoker Hx Alcohol Use: No Hx Substance Use: Yes Substance Use Type Other:: medical card Preferred Language: Sami Communication Ability: Effective Adjunct Faculty For Medical Terminology Required: No Beliefs That Will Affect Care: None Current Living Situation: Family Feels Safe at Home: Yes Review of Systems Constitutional: no fever and no chills Respiratory: + dyspnea on exertion (resolving) Gastrointestinal: no abdominal pain, no vomiting (resolved), no hematemesis and no blood in stools Physical Exam Constitutional: well developed Respiratory: no respiratory distress Gastrointestinal (Abdomen): normal bowel sounds, soft, nontender, no hepatosplenomegaly Results & Data Vital Signs (Past 12 Hours) Vital Signs Temp Pulse Pulse Resp BP Pulse Ox Pulse Ox 01/11/25 07:04 48 L 01/11/25 03:34 36.8 C 61 14 132/59 L 100 01/11/25 02:41 61 01/11/25 01:19 100 O2 Del Method O2 Del Method O2 Flow Rate O2 Flow Rate 01/11/25 07:04 01/11/25 03:34 Non-rebreather 10 01/11/25 02:41 01/11/25 01:19 Non-rebreather 10 PG Care Time/CCT Total # of Minutes Spent Total Time Spent with Patient: Total time spent is greater than 50% in coordination of care (as documented) at patient's floor/unit and/or counseling patient: Coding Level of Care Code 25900 IN/OBS CONSULT LVL 4,60M Diagnoses Pneumomediastinum J98.2
--- NOTE | 2025-01-11 12:25 | CT Scan Report ---
CT OF THE CHEST WITH IV CONTRAST CLINICAL HISTORY: ? [facility] COMPARISON STUDY: Chest CT January 10, 2025. TECHNIQUE: Following IV administration of 93 mL of Optiray, helical axial images of the chest were o btained. Sagittal and coronal reconstructions were viewed as well as maximal intensity projections o n an independent 3-D workstation. Automated exposure control was utilized for the study. A dose low ering technique was utilized adhering to the principles of ALARA. The patient ingested oral contrast immediately prior to this study. CT DOSE: 662.74 mGy.cm FINDINGS: The esophagus is well opacified. No extraluminal contrast is identified. A small amount of pneumomediastinum has decreased since CT of January 10, 2025. There is no pneumothorax or pleural ef fusion. Size of the heart is normal. There is no pericardial effusion. There is no thoracic lymphaden opathy. Central airways are patent. No consolidation to suggest pneumonia. There are no pulmonary nod ules. There are no fractures within the bony thorax. Subcentimeter right hepatic lobe lesion is too s mall to characterize but is likely benign. Upper abdomen is unremarkable. IMPRESSION: 1. No extraluminal contrast to suggest full-thickness esophageal tear. 2. Small amount of pneumomediastinum, decreased since prior CT. No pneumothorax or pleural effusion. ACT 112: Negative or not required by law. Electronically signed by: Chau Jiménez M.D. 01/11/2025 12:23 PM
[2025-01-11 14:13] VITALS: RESP 18; O2SAT 98
--- NOTE | 2025-01-11 15:15 | Discharge Summary ---
Date of Service January 11, 2025 Admission HPI Per Admitting Provider This is a 34 year old gentleman with no significant past medical history who presented to the ED on 01/10 for shortness of breath and vomiting. Patient reports he binge drank alcohol last night and had started to vomit several times due to that. Around 7 am this morning he started to experience pain in his right upper quadrant region/rib region. He continued to vomit several times after that as well. He denies any hematemesis. Denies any shortness of breath but states that he cannot take deep breaths because it will cause him too much pain. He does report his symptoms have improved since earlier today. He also reports abnormal bowel habits recently. States he had this awhile ago but worked on his diet and it resolved. He states his stools are oily and yellow in color recently. In the ED he underwent a chest CTA that revealed a mild pneumomediastinum and trace medial/basilar left pnuemothorax. Negative for PE. His CXR was negative. His RUQ US was negative. CBC w/ leukocytosis of 24.17. BMP with stable renal function and electrolytes. GI was contacted by ED physician who recommended patient be admitted to hospital for overnight monitoring and that they will see the patient in the morning to aide in determining next steps. Admission Exam Per Admitting Provider Constitutional: WD/WN, vitals as above Eyes: PERRL, conjunctivae normal, anicteric sclerae Respiratory: normal respiratory effort, lungs clear to auscultation Cardiovascular: RRR, no murmur, no edema Gastrointestinal (Abdomen): +RUQ tenderness. +BS Musculoskeletal: moves all extremities Psychiatric: A+Ox3, euthymic affect Principal Diagnosis Pneumomediastinum Discharge Exam Constitutional WD/WN, vitals as above Respiratory normal respiratory effort, lungs clear to auscultation Cardiovascular RRR, no murmur, no edema Gastrointestinal (Abdomen) normal bowel sounds, soft, nontender, no hepatosplenomegaly Psychiatric A+Ox3, euthymic affect Discharge Data Allergies Allergy/AdvReac Type Severity Reaction Status Date / Time No Known Allergies Allergy Unverified 01/10/25 17:40 Consultations 01/10/25 17:10 ED Decision to Admit Stat 01/10/25 17:52 Consult Gastroenterology Routine Consult Pulmonology Routine Ordered Studies 02/09/25 15:35 CT angio chest PE protocol Stat 01/10/25 16:16 US gallbladder Stat 01/11/25 11:20 CT chest diagnostic w con Routine Hospital Course (1) Pneumomediastinum: (2) Leukocytosis: Plan Plan Patient is a 34 year old gentleman with no significant past medical history who presented to the ED on 01/10 for shortness of breath and vomiting. 1) pneumomediastinum CXR negative; RUQ US negative; CTA w/ mild pneumomediastinum and left pneumothorax CBC w/ leukocytosis of 24.17, improved to 14.58; likely secondary to vomiting. Maintained NPO status overnight, pt much better this morning IV PPI BID; Zofran prn N/V GI consulted, swallow study (w/ gastrograffin) did not reveal any filling defect or mucosal abnormality CT-Chest for any acute concerns, no evidence of esophageal tear 2) pneumothorax Started high flow oxygen, pt w/ O2Sat of 99% this morning CT-Chest this morning w/out evidence of pneumothorax pulmonology consulted, appreciated recommendations Total Time Total Time Spent Total Time Spent (In Minutes): see attending attestation Discharge Plan Discharge Items Patient Disposition: Home - Self-Care Reason For Visit: VOMITING, ABDOMINAL PAIN Discharge Diagnosis: Pneumomediastinum Condition on Discharge: Fair Activity: Resume your previous activity Non-emergency contact: Primary Care Provider Call non-emergency contact if: your symptoms worsen and your pain is unusual for you Follow-up/Referrals: PCP,NO [Primary Care Provider] - Diet: Regular Addtl Attending Provider Instructions: You were admitted to the hospital for shortness of breath, respiratory difficulty, subsequently found to have a pneumomediastinum. You were treated with fluids, Zofran to relieve nausea. A discharge summary will be sent to your primary care physician to ensure continuity of care. Please bring this discharge summary with you to your next office appointment so that your provider can review it at that time. Follow-up appointments: Make a follow-up appointment with your PCP within the next week. It is very important that you follow up with them shortly after discharge from the hospital. Keep all your follow-up appointments as already scheduled. If you cannot make an appointment, notify your provider. CONTACT YOUR PRIMARY CARE PROVIDER if you experience any of the following: shortness of breath, recurrent vomiting and/or diarrhea Difficulty following your treatment plan, or difficulty taking medications CALL 911 OR GO TO THE EMERGENCY DEPARTMENT if you experience any of the following: Sudden, severe abdominal pain or nausea/vomiting Severe chest pain, or chest pain that radiates (moves) to your jaw or arm Sudden, severe shortness of breath or difficulty breathing Thank you for allowing us to participate in your care Pending Studies at Discharge: No Stand-Alone Forms: [facility] Work[facility]School [facility], Smoking Cessation Medications and DC Order Prescriptions: New amoxicillin 500 mg capsule 500 mg PO TID Qty: 15 0RF Discharge Orders: Discharge Order (Routine); Ordered 01/11/25 Ordered By: Reinaldo Wood Admission Data Admit Date/Time: 01/10/25 17:52 Attending Provider: Martin Calderon Admit Provider: Gerardo Mackenzie Primary Care Provider: PCP,NO Other Providers: Gerardo Mackenzie; Ken Guo; Orlando Smyth; Karthik Murphy; Valeriano Rosales; Cyn Natarajan; Aurelia Sanford; Tayla Bryant Other Interventions: Discharge Summary Assessment (RN) Last Done: 01/11/25 15:52 Supervising Physician Co-Signing Physician Notes I personally examined the patient and verified all santa points of history and exam, discussed case, and agree with decision making with Dr Wood Feeling better and would like to go home. Discussed with pulmonaryno flight restrictions given how to reveal the pneumothorax was. Vitals noted, in general he is awake and alert pleasant no distress. HEENT normocephalic atraumatic mucous membranes moist. Breathing unlabored no accessory muscle use good effort. Skin without rashes pallor or icterus. Excessive vomiting with subsequent pneumomediastinum Introvale pneumothoraxalready resolving. Safe/stable for home. Okay to fly after discussion with pulmonary. Recommended establishing with PCP back home. Otherwise as above.
[2025-01-11 15:54] VITALS: BP 127/82; PULSE 62
[2025-01-11] MEDS ORDERED: cefTRIAXone SODIUM 2,000 MG/50 ML BAG IV SCH (16:30)
--- NOTE | 2025-01-11 18:00 | Billing Data ---
Date of Service January 11, 2025 Coding Level of Care Code 12093 IN/OBS DISCH 30 MIN/LESS
== END 2025-01-11 16:00 | disposition home or self-care (01) | DRG 200 ==
LOC: ED 12:36 → EDUNIT# 12:36 → SUATTDRO 17:52 → EDINP 17:52 → INTOOBSV 17:52 → EDINP 20:05